=== PATIENT | male | born 1975 | race African-American/Black ===

== ENCOUNTER 2022-06-06 | Emergency (ER) | payer SELFPAY ==
[2022-06-06 00:01] VITALS: BP 121/73; PULSE 120; RESP 14; TEMP 36.5; O2SAT 97
--- NOTE | 2022-06-06 00:12 | ED.GENADULT ---
HPI - General Adult General Chief complaint: Recheck/Abnormal Lab/Rx Stated complaint: SEIZURE-LIKE ACTIVITY History of Present Illness HPI narrative: 47-year-old male with history of seizures presenting to the emergency department for evaluation of a sensation of an impending seizure. Patient states that he takes his Keppra twice a day and has not missed any doses. Patient takes his meds around midnight and did not yet take it prior to calling for the ambulance. Patient denies any associated numbness or weakness. Patient denies any chest pain or shortness of breath. Patient denies any nausea vomiting or diarrhea. Patient denies having any recent seizure activity. Related Data Allergies Allergy/AdvReac Type Severity Reaction Status Date / Time No Known Allergies Allergy Verified 06/06/22 00:05 Review of Systems Review of Systems: CONSTITUTIONAL: Denies fever, chills, or sweats. EYES: Denies visual changes, redness, or discharge. ENT: Denies rhinorrhea, congestion, sore throat, or otalgia. CARDIOVASCULAR: Denies chest pain, palpitations, or edema. RESPIRATORY: Denies cough or dyspnea. GASTROINTESTINAL: Denies abdominal pain, nausea, vomiting, or diarrhea. GENITOURINARY: Denies dysuria or hematuria. SKIN: Denies rash or itching. MUSCULOSKELETAL: Denies back pain, joint pain, or myalgia. NEUROLOGIC: Denies headache, numbness, or weakness. Sensation of an impending seizure Exam Narrative: APPEARANCE: Well appearing, no pain, no distress, well-nourished. HEAD: normocephalic, atraumatic. EYES: PERRLA/EOMI, conjunctivae clear. NOSE: Normal no drainage NECK: Supple. No adenopathy, no masses. RESPIRATORY: Airway patent, respirations nonlabored. Clear to auscultation bilaterally, no rales, rhonchi, wheezing. CARDIOVASCULAR: Regular rate and rhythm without murmurs rubs or gallops. ABDOMINAL: Soft, nontender, nondistended, normal bowel sounds MUSCULOSKELETAL: Moves all extremities. Strength/ROM intact, No edema, No calf tenderness. NEURO: Alert. Cranial nerves II through XII intact. Grossly intact SKIN: Warm, dry. Normal Color Course Course Emergency Course: Patient was given a dose of Keppra. Vital Signs Vital signs: Vital Signs Temperature 97.7 F 06/06/22 00:01 Pulse Rate 120 H 06/06/22 00:01 Respiratory Rate 14 06/06/22 00:01 Blood Pressure 121/73 06/06/22 00:01 Pulse Oximetry 97 06/06/22 00:01 Oxygen Delivery Room Air 06/06/22 00:01 Temperature 97.7 F 06/06/22 00:01 Pulse Rate 96 06/06/22 01:47 Respiratory Rate 16 06/06/22 01:47 Blood Pressure 108/72 06/06/22 01:47 Pulse Oximetry 100 06/06/22 01:47 Oxygen Delivery Room Air 06/06/22 00:01 Medical Decision Making Vital Signs Vital Signs: Vital Signs Temperature 97.7 F 06/06/22 00:01 Pulse Rate 120 H 06/06/22 00:01 Respiratory Rate 14 06/06/22 00:01 Blood Pressure 121/73 06/06/22 00:01 Pulse Oximetry 97 06/06/22 00:01 Oxygen Delivery Room Air 06/06/22 00:01 Temperature 97.7 F 06/06/22 00:01 Pulse Rate 96 06/06/22 01:47 Respiratory Rate 16 06/06/22 01:47 Blood Pressure 108/72 06/06/22 01:47 Pulse Oximetry 100 06/06/22 01:47 Oxygen Delivery Room Air 06/06/22 00:01 Lab Data Lab results reviewed: Yes I reviewed the patient's lab results. Result diagrams: 06/06/22 00:30 06/06/22 00:30 Labs: Lab Results 06/06/22 06/06/22 Range/Units 00:30 00:30 WBC 8.1 (4.5-10.0) K/mm3 RBC 5.03 (4.6-6.20) M/mm3 Hgb 14.5 (14.0-18.0) g/dL Hct 47.0 (42.0-52.0) % MCV 93.4 (80-100) fl MCH 28.8 (26-34) pg MCHC 30.9 L (32-36) g/dl RDW 13.3 (11.5-14.5) % Plt Count 190 (150-375) k/mm3 MPV 12.1 H (7.4-10.4) fl Immature Gran % (Auto) 0.2 (0-0.5) % Neut % (Auto) 50.0 (45.5-73.1) % Lymph % (Auto) 40.9 (18.3-44.2) % [place] % (Auto) 7.6 (2.6-8.5) % Eos % (Auto) 1.1 (0-4.4) % Baso % (Auto) 0.2 (0.2-1.2)
[2022-06-06 00:35] LABS: Basophils Percent Auto 0.2 % (0.2-1.2); Eosinophils Absolute Auto 0.1 K/mm3 (0-0.3); Eosinophils Percent Auto 1.1 % (0-4.4); Hemoglobin 14.5 g/dL (14.0-18.0); Immature Granulocyte Absolute 0.02 K/mm3 (0.00-0.031); Immature Granulocyte Percent A 0.2 % (0-0.5); Lymphocytes Absolute Auto 3.29 K/mm3 (0.9-3.2); Lymphocytes Percent Auto 40.9 % (18.3-44.2); Mean Corpuscular HGB Conc 30.9 g/dl (32-36); Mean Corpuscular Hemoglobin 28.8 pg (26-34); Mean Corpuscular Volume 93.4 fl (80-100); Mean Platelet Volume 12.1 fl (7.4-10.4); Monocytes Absolute Auto 0.6 K/mm3 (0.1-0.6); Monocytes Percent Auto 7.6 % (2.6-8.5); Platelet Count Result 190 k/mm3 (150-375); Red Blood Count 5.03 M/mm3 (4.6-6.20); Red Cell Distribution Width 13.3 % (11.5-14.5); White Blood Count 8.1 K/mm3 (4.5-10.0)
[2022-06-06 00:41] VITALS: BP 102/73; PULSE 101; RESP 20; O2SAT 95
[2022-06-06] MEDS: levETIRAcetam 1000MG/NACL100ML 1,000 MG/100 ML BAG 400 MG IVPB (00:41)
[2022-06-06] MEDS: SODIUM CHLORIDE 0.9% IV 1,000 ML 999 ML IV CONT (00:42)
[2022-06-06 00:45] LABS: Alanine Aminotransferase 15 U/L (6-50); Albumin Level 4.6 g/dL (3.5-5.1); Alkaline Phosphatase 87 U/L (38-126); Anion Gap 17 mmol/L (8-16); Aspartate Amino Transferase 18 U/L (17-59); Bilirubin,Total 0.4 mg/dL (0.2-1.3); Blood Urea Nitrogen 17 mg/dL (9-20); Carbon Dioxide 16 mmol/L (22-30); Chloride 112 mmol/L (98-107); Estimated CRCL calculation 63 ml/min; Estimated Glomerular Filt Rate 55; Glucose 134 mg/dL (65-110); Potassium 3.6 mmol/L (3.4-5.0); Sodium 145 mmol/L (137-145)
[2022-06-06 01:47] VITALS: BP 108/72; PULSE 96; RESP 16; O2SAT 100
== END 2022-06-06 02:15 | disposition home or self-care (01) ==
PROVIDERS: Emergency Provider Emergency Medicine
DX: G40.909 Epilepsy, unspecified, not intractable, without status epilepticus (principal)
CPT/HCPCS: 36415; 80053; 83735; 85025; 96365; 99284; J1953; J7030